=== PATIENT | female | born 1985 | race Caucasian/White ===

== ENCOUNTER 2020-08-26 01:59 | Outpatient (CLI) | payer OTHER, SELFPAY ==
[2020-08-26 17:58] LABS: SARS-CoV-2 RNA PCR Positive
== END 2020-08-26 02:00 | disposition home or self-care (01) ==
LOC: ANHCOVIDDT 01:59
PROVIDERS: PCP Family Medicine; Visit Provider Internal Medicine Gastroenterology
DX: Z01.812 Encounter for preprocedural laboratory examination (principal); U07.1 COVID-19
CPT/HCPCS: 87635; C9803; U0003

== ENCOUNTER 2020-09-12 17:55 | Outpatient (CLI) | payer OTHER, SELFPAY ==
[2020-09-12 18:14] LABS: Basophils Absolute Auto 0.03 K/mm3 (0.00-0.10); Basophils Percent Auto 0.4 % (0.0-1.0); Eosinophils Absolute Auto 0.44 K/mm3 (0.02-0.50); Eosinophils Percent Auto 5.3 % (1.0-6.0); Hematocrit 35.3 % (35.0-49.0); Immature Granulocyte Absolute 0.05 K/mm3 (0.00-0.00); Immature Granulocyte Percent A 0.6 % (0.0-0.0); Lymphocytes Absolute Auto 2.29 K/mm3 (1.10-4.50); Lymphocytes Percent Auto 27.4 % (18.0-42.0); Mean Corpuscular HGB Conc 31.2 g/dL (32.0-36.0); Mean Corpuscular Hemoglobin 24.9 pg (27.0-31.0); Monocytes Absolute Auto 0.37 K/mm3 (0.10-0.90); Monocytes Percent Auto 4.4 % (2.0-11.0); Neutrophils Absolute Auto 5.2 K/mm3 (1.7-7.2); Neutrophils Percent Auto 61.9 % (50.0-70.0); Platelet Count Result 244 K/mm3 (150-420); Red Blood Count 4.41 M/mm3 (4.20-5.40); Red Cell Distribution Width 16.8 % (11.6-14.4); White Blood Count 8.4 K/mm3 (4.8-10.8)
[2020-09-12 19:34] LABS: Anion Gap 13 mmol/L (8-16); Blood Urea Nitrogen 11 mg/dL (7-18); Calcium 9.2 mg/dL (8.5-10.1); Carbon Dioxide 22 mmol/L (21-32); Chloride 102 mmol/L (98-108); Estimated Glomerular Filt Rate > 60; Free T4 Free Thyroxine 0.85 ng/dL (0.76-1.46); Glucose 146 mg/dL (70-99); Osmolality Calculated 286 mOsm/kg (285-295); Potassium 4.3 mmol/L (3.5-5.1); Sodium 137 mmol/L (136-145); Thyroid Stimulating Hormone 2.54 uIU/mL (0.36-3.74)
== END 2020-09-12 17:56 | disposition home or self-care (01) ==
LOC: CHSLAB 17:59
PROVIDERS: PCP Family Medicine; Visit Provider Family Medicine
DX: R00.2 Palpitations (principal)
CPT/HCPCS: 36415; 80048; 84439; 84443; 85025

== ENCOUNTER 2020-09-14 13:59 | Outpatient (CLI) | payer OTHER, SELFPAY ==
--- NOTE | ~2020-09-14 | MR_ITS ---
EXAMINATION: MR knee LT wo con DATE: 09/14/2020 14:49 INDICATION: Medial left knee pain. TECHNIQUE: Magnetic resonance imaging (MRI) of the left knee was performed without intravenous contra st. Sequences included axial PD-weighted FS FSE, coronal PD-weighted FSE and PD-weighted FS FSE, sagi ttal PD-weighted FSE, and sagittal T2-weighted FS FSE. COMPARISON: None. FINDINGS: Medial compartment: Medial meniscus is normal. There is cartilage surface irregularity of femoral condyle and tibial cond yle. Lateral compartment: The lateral meniscus is normal. The lateral compartment cartilage is normal. Patellofemoral compartment: There is cartilage surface irregularity of patellar medial facet. Trochlear cartilage is normal. Ligaments and tendons: The anterior and posterior cruciate ligaments are normal. Medial collateral ligament and lateral hien ateral ligament complex are normal. There is mild patellar tendinopathy. Fluid: There is a small knee joint effusion. There is trace fluid in a Hernandez's cyst. There is mild prepatell ar and superficial infrapatellar bursitis. IMPRESSION: 1. Mild chondrosis of medial and patellofemoral compartments. 2. Small knee joint effusion. Reviewed, dictated and finalized at location A.
== END 2020-09-14 14:00 | disposition home or self-care (01) ==
PROVIDERS: PCP Family Medicine; Visit Provider Family Medicine
DX: M25.461 Effusion, right knee (principal)
CPT/HCPCS: 73721

== ENCOUNTER 2020-09-16 00:39 | Outpatient (CLI) | payer OTHER, SELFPAY ==
[2020-09-16 18:05] LABS: SARS-CoV-2 RNA PCR Positive
== END 2020-09-16 00:40 | disposition home or self-care (01) ==
LOC: ANHCOVIDDT 00:39
PROVIDERS: PCP Family Medicine; Visit Provider Internal Medicine Gastroenterology
DX: Z01.812 Encounter for preprocedural laboratory examination (principal); U07.1 COVID-19
CPT/HCPCS: 87635; C9803; U0003

== ENCOUNTER 2020-10-06 02:41 | Outpatient (CLI) | payer OTHER, SELFPAY ==
[2020-10-06 19:52] LABS: SARS-CoV-2 RNA PCR Negative
== END 2020-10-06 02:42 | disposition home or self-care (01) ==
LOC: ANHCOVIDDT 02:41
PROVIDERS: PCP Family Medicine; Visit Provider Internal Medicine Gastroenterology
DX: Z01.812 Encounter for preprocedural laboratory examination (principal); Z20.828 Contact with and (suspected) exposure to other viral communicable diseases
CPT/HCPCS: 87635; C9803; U0003

== ENCOUNTER 2020-10-06 09:09 | Outpatient (CLI) | payer OTHER, SELFPAY ==
--- NOTE | 2020-10-09 08:55 | WPDHOLTEREM ---
Holter/Event Monitor Holter/Event Monitor Date of procedure: 10/06/20 Procedure Type: 48 hour holter Indications: Palpitations Conclusion: 1. 48 hour holter monitor on 10/06/20. 2. Underlying rhythm is sinus rhythm. HR range 60-156 bpm; average hr 89 bpm. 3. There are 5 premature supraventricular complexes. No supraventricular tachycardia. 4. There are 3 premature ventricular complexes. No ventricular tachycardia. 5. No sinoatrial or atrioventricular blocks. No significant pauses greater than 2 seconds. 6. Patient reports symptoms of fluttering, pounding which demonstrate sinus rhythm, HR range 84-145 bpm with one PAC and one PVC.
== END 2020-10-06 09:10 | disposition home or self-care (01) ==
LOC: CHSCARD 09:11
PROVIDERS: PCP Family Medicine; Visit Provider Family Medicine
DX: R00.2 Palpitations (principal)
CPT/HCPCS: 93225; 93226

== ENCOUNTER 2020-10-09 01:02 | Day surgery (SDC) | payer OTHER, SELFPAY ==
[2020-08-24 09:03] VITALS: BMI 52.0
--- NOTE | 2020-08-28 08:27 | SUR.PREOP ---
0828 Spoke with patient regarding her positive Covid test results. Patient stated she had been contacted by the [facility] yesterday. Explained her procedure was cancelled and to follow up with her primary care doctor for concerns related to her Covid and she could follow up with Dr. Dunn's office to get her procedure rescheduled in 2 weeks or so. We discussed her needing a negative Covid result to be able to have her procedure. Patient voiced understanding and would follow up with Dr. Dunn's office.
--- NOTE | 2020-09-18 13:08 | SUR.PREOP ---
1043 PATIENT CALLED AND GIVEN COVID TEST RESULTS. PATIENT INSTRUCTED TO CALL PRIMARY CARE PHYSICIAN WITH CONCERNS OF COVID SYMPTOMS, PATIENT ALSO INSTRUCTED TO FOLLOW UP WITH DR. BAEZ OFFICE REGARDING RE-SCHEDULING HER PROCEDURE.
[2020-10-02 15:05] VITALS: BMI 52.0
[2020-10-09] MEDS: LACTATED RINGERS 1,000 ML 150 ML IV CONT (09:33)
[2020-10-09 09:35] VITALS: BP 133/87; PULSE 106; RESP 20; TEMP 36.4; O2SAT 100; BMI 54.1
--- NOTE | 2020-10-09 09:37 | WPDANESEPPF ---
Anes - Initial Pre Proc Eval Procedure: Operation Date: 10/09/20 10:30 Proposed Procedures p Esophagogastroduodenoscopy - Andrew Reid MD Date/Time: 10/09/20 09:37 Surgeon: Andrew Reid MD Pre Op Diagnosis: Abdominal Pain Patient Data Age: 35 Gender: F Height: 5 ft 8 in Weight: 155 kg Allergies Allergy/AdvReac Type Severity Reaction Status Date / Time diphtheria,pertussis Allergy Severe Swelling Verified 10/09/20 09:34 (acellular),te [From Adacel(Tdap Adolesn/Adult)(PF)] bupropion [From Wellbutrin] Allergy fast Verified 10/09/20 09:34 heartrate eye drops Allergy Other Uncoded 10/09/20 09:34 Home Medications Medication Instructions Recorded Confirmed Type famotidine 20 mg tablet 20 mg PO BID 08/17/20 08/24/20 History omeprazole 20 mg capsule,delayed 20 mg PO DAILY #30 cap 08/17/20 08/24/20 Rx release Zyrtec 10 mg PO DAILY 08/24/20 08/24/20 History metformin 1,500 mg PO DAILY 08/24/20 08/24/20 History omega 4-thm-wri-fish oil [Fish Oil] 1 cap PO DAILY 08/24/20 08/24/20 History Patient hx anesthesia problems: none Family hx anesthesia problems: none PMFSH Past Medical History Medical History (Updated 08/17/20 @ 09:52 by Andrew Reid MD) Anemia GERD (gastroesophageal reflux disease) Obesity, morbid, BMI 40.0-49.9 Family History Family History Father Malignant neoplasm of prostate Basal cell carcinoma of skin High cholesterol Mother A-fib Social History Social History Smoking status: Never smoker Alcohol intake: never Substance use: never Substance use type: does not use Living arrangements: alone Spiritual care concerns: No Anes - Eval Final PreProcedure Day of Procedure 10/09/20 09:37 Patient weight: super morbidly obese Heart: regular rate and rhythm Lungs: clear to auscultation Airway: Mallampati scale class III Neurological: alert and oriented Last oral intake: >/= 8 hours ASA classification: III Emergent: no Anesthetic plan: proceed Anesthesia type and monitoring: general GIVS and standard monitoring Informed Consent: The patient's anesthetic plan and its attendant risks and benefits were discussed with the patient/family/POA. Questions were solicited and answers provided to the satisfaction of the patient/family/POA.
--- NOTE | 2020-10-09 11:29 | PM.HPGS ---
History of Present Illness History of Present Illness Consent: Risks, benefits, and alternatives have been discussed and questions answered. Patient agrees to proceed with procedure. Chief complaint: Abdominal Pain Narrative: Shefali Mckinney is a 35 year old female with gerd on omeprazole and pepcid Review of Systems Constitutional: Constitutional: Denies headache(s) and Denies weakness Eyes: Eyes: Denies blurry vision ENT: Reports Normal hearing present, Denies headache(s) and Denies neck pain Cardiovascular: Cardiovascular: Denies chest pain and Denies dyspnea Respiratory: Respiratory: Denies dyspnea Gastrointestinal: Gastrointestinal: Reports no additional gastrointestinal complaints Genitourinary: Genitourinary: Denies dysuria Musculoskeletal: Musculoskeletal: Denies neck pain Integumentary/Breasts: Skin/Breast: Denies dry skin Neurologic: Reports Normal hearing present, Denies headache(s) and Denies weakness Psychiatric: Psychiatric: Denies anxiety Endocrine: Endocrine: Denies change in body appearance Hematologic/Lymphatic: Hematologic/Lymphatic: Denies easy bleeding Allergic/Immunologic: Allergic/Immunologic: Denies urticaria PMFSH Past Medical History Medical History (Updated 08/17/20 @ 09:52 by Andrew Reid MD) Anemia GERD (gastroesophageal reflux disease) Obesity, morbid, BMI 40.0-49.9 Family History Family History Father Malignant neoplasm of prostate Basal cell carcinoma of skin High cholesterol Mother A-fib Social History Social History Smoking status: Never smoker Alcohol intake: never Substance use: never Substance use type: does not use Living arrangements: alone Spiritual care concerns: No Meds Home Medications and Allergies Home Medications Medication Instructions Recorded Confirmed Type famotidine 20 mg tablet 20 mg PO BID 08/17/20 08/24/20 History omeprazole 20 mg capsule,delayed 20 mg PO DAILY #30 cap 08/17/20 10/09/20 Rx release Zyrtec 10 mg PO DAILY 08/24/20 08/24/20 History metformin 1,500 mg PO DAILY 08/24/20 08/24/20 History omega 9-pyw-nso-fish oil [Fish Oil] 1 cap PO DAILY 08/24/20 08/24/20 History Allergies Allergy/AdvReac Type Severity Reaction Status Date / Time diphtheria,pertussis Allergy Severe Swelling Verified 10/09/20 09:34 (acellular),te [From Adacel(Tdap Adolesn/Adult)(PF)] bupropion [From Wellbutrin] Allergy fast Verified 10/09/20 09:34 heartrate eye drops Allergy Other Uncoded 10/09/20 09:34 Vital Signs Vital Signs - 24 hr 10/09/20 09:35 Temperature 97.6 F Pulse Rate 106 H Respiratory Rate 20 Blood Pressure 133/87 Pulse Oximetry 100 Exam Const: General: comfortable and no acute distress HENMT: General nose exam: Normal nares present Eyes: General: appearance normal, both eyes and all related structures Neck: Neck: no JVD Resp: Auscultation: clear to auscultation bilaterally Cardio: Rate: regular rate Rhythm: regular rhythm GI: Inspection: non-distended GI Palp: Yes Soft to palpation Skin: General skin exam: normal color Neuro: General: gait normal Speech: normal speech Extrem: General: normal to inspection Psych: Mental Status: mental status grossly normal Assessment and Plan Assessment and plan (1) GERD (gastroesophageal reflux disease): Code(s): K21.9 - Gastro-esophageal reflux disease without esophagitis Status: Acute Assessment and Plan: will proceed with egd (2) Obesity, morbid, BMI 40.0-49.9: Code(s): E66.01 - Morbid (severe) obesity due to excess calories Status: Acute
[2020-10-09] MEDS: BENZOCAINE (*SP) 60 ML SPRAY CAN (HURRICAINE) 1 SPRAY MUCOUS MEM (11:33)
[2020-10-09 11:45] VITALS: BP 100/63; PULSE 88; RESP 14; O2SAT 95
[2020-10-09 11:55] VITALS: BP 112/70; PULSE 90; RESP 23; O2SAT 96
[2020-10-09 12:05] VITALS: BP 125/80; PULSE 83; RESP 23; O2SAT 97
== END 2020-10-09 12:16 | disposition home or self-care (01) ==
PROVIDERS: PCP Family Medicine; Visit Provider Internal Medicine Gastroenterology
PROC: 0DJ08ZZ Inspection of Upper Intestinal Tract, Via Natural or Artificial Opening Endoscopic (ICD-10-PCS; CPT 43235; principal; 2020-10-09 10:30)
DX: K21.9 Gastro-esophageal reflux disease without esophagitis (principal); R10.13 Epigastric pain; K44.9 Diaphragmatic hernia without obstruction or gangrene; K29.50 Unspecified chronic gastritis without bleeding; E66.01 Morbid (severe) obesity due to excess calories; Z68.43 Body mass index [BMI] 50.0-59.9, adult
CPT/HCPCS: 43239; 88305; J2704; J7120

== ENCOUNTER 2022-04-19 11:43 | Emergency (ER) | payer OTHER, SELFPAY ==
[2022-04-19 11:48] VITALS: BP 149/89; PULSE 100; RESP 20; O2SAT 98
--- NOTE | 2022-04-19 12:17 | ED.FEMALEGU ---
HPI - Female Genitourinary General Chief complaint: Vaginal Bleeding Stated complaint: Vaginal Bleeding Time Seen by Provider: 04/19/22 11:54 Source: patient Mode of arrival: ambulatory Limitations: no limitations History of Present Illness HPI Narrative: Patient is a 37-year-old female who presents to the ED with report of vaginal bleeding. Patient has a history of PCOS. She reports she switched from a progesterone only pill to a combination oral control at the end of February. Approximately 20 days ago, she began having bleeding. She states the bleeding was intermittent at first. Over the past 2 weeks, she reports having more consistent bleeding. Over the past 2 days, she reports heavy bleeding. She reports having 2 large blood clots this morning and states she was having to change her super plus tampon or heavy pad every hour. She has an appointment with her [employer] on Friday, however became concerned about the amount of bleeding today and decided to come to the ED. She also reports having intermittent left lower quadrant cramping but denies any upper abdominal pain, nausea, vomiting, fever, chills, rectal bleeding, urinary symptoms. Related Data Home Medications Medication Instructions Recorded Confirmed famotidine 20 mg tablet 20 mg PO BID 08/17/20 08/24/20 Zyrtec 10 mg PO DAILY 08/24/20 08/24/20 omega 7-wqk-dnm-fish oil 1,000 mg 1 cap PO DAILY 08/24/20 08/24/20 (120 mg-180 mg) capsule (Fish Oil) Allergies Allergy/AdvReac Type Severity Reaction Status Date / Time diphtheria,pertussis Allergy Severe Swelling Verified 04/19/22 12:01 (acellular),te [From Adacel(Tdap Adolesn/Adult)(PF)] bupropion [From Wellbutrin] Allergy fast Verified 04/19/22 12:01 heartrate eye drops Allergy Other Uncoded 04/19/22 12:01 Review of Systems Review of Systems: CONSTITUTIONAL: Denies fever, chills. GASTROINTESTINAL: Reports intermittent LLQ cramping. Denies upper abdominal pain, nausea, vomiting, rectal bleeding, or diarrhea. GENITOURINARY: Reports vaginal bleeding with clots. Denies dysuria or hematuria. SKIN: Denies rash or itching. MUSCULOSKELETAL: Denies back pain. All systems reviewed & are unremarkable except as noted in HPI and below PMFSH Past Medical History Medical History (Updated 04/19/22 @ 13:48 by Alondra Mckeon PA-C) Anemia GERD (gastroesophageal reflux disease) Obesity, morbid, BMI 40.0-49.9 Surgical History Surgical History (Updated 04/19/22 @ 18:05 by Alondra Mckeon PA-C) History of esophagogastroduodenoscopy (EGD) Family History Family History Father Malignant neoplasm of prostate Basal cell carcinoma of skin High cholesterol Mother A-fib Social History Social History Alcohol intake: never Substance use: never Substance use type: does not use Spiritual care concerns: No Exam Narrative: GENERAL: Well appearing, morbidly obese, non-toxic, in no acute distress. HEAD: Normocephalic, atraumatic. NECK: Supple. No adenopathy, no masses. RESPIRATORY: Airway patent, respirations nonlabored. Clear to auscultation bilaterally, no rales, rhonchi, wheezing. CARDIOVASCULAR: Regular rate and rhythm without murmurs, rubs, or gallops. Peripheral pulses 2+ and equal bilaterally. ABDOMINAL: Soft, no tenderness to palpation, nondistended, no hepatosplenomegaly. Normoactive BS. PELVIC: Normal external genitalia. No genital lesions. Cervix without acute findings. Dark red blood noted with some small clots present, but no pooling of blood or signs of acute hemorrhage. No CMT. MUSCULOSKELETAL: Moves all extremities. Strength/ROM intact without gross deformities. SKIN: Warm, dry, normal color. No rashes. NEURO: A&O X3. Speech clear. Cranial nerves II-XII grossly intact. Steady gait. No ataxic movements. PSYCHIATRIC: Appropriate mood and affect. Normal interaction. Course
[2022-04-19 12:24] LABS: Basophils Absolute Auto 0.1 K/mm3 (0.0-0.1); Basophils Percent Auto 0.7 % (0.2-1.2); Eosinophils Absolute Auto 0.3 K/mm3 (0-0.3); Eosinophils Percent Auto 2.9 % (0-4.4); Hematocrit 33.1 % (37.0-47.0); Hemoglobin 9.6 g/dL (12.0-15.0); Immature Granulocyte Absolute 0.08 K/mm3 (0.00-0.031); Immature Granulocyte Percent A 0.8 % (0-0.5); Lymphocytes Absolute Auto 2.04 K/mm3 (0.9-3.2); Lymphocytes Percent Auto 19.4 % (18.3-44.2); Mean Corpuscular Hemoglobin 22.7 pg (26-34); Mean Corpuscular Volume 78.4 fl (80-100); Mean Platelet Volume 9.6 fl (7.4-10.4); Monocytes Absolute Auto 0.4 K/mm3 (0.1-0.6); Monocytes Percent Auto 3.6 % (2.6-8.5); Neutrophils Absolute Auto 7.6 K/mm3 (1.3-6.7); Neutrophils Percent Auto 72.6 % (45.5-73.1); Platelet Count Result 283 k/mm3 (150-375); Red Blood Count 4.22 M/mm3 (4.2-5.4); Red Cell Distribution Width 17.1 % (11.5-14.5); White Blood Count 10.5 K/mm3 (4.5-10.0)
[2022-04-19 12:32] LABS: Add Urine Microscopic? YES; Appearance Urine Cloudy (Clear); Bilirubin Urine Negative (Negative); Blood Urine 3+ (Negative); Color Urine Yellow (Yellow); Glucose Urine UA Negative (Negative); Ketones Urine Negative (Negative); Leukocyte Esterase Ur Negative LEU/UL (Negative); Nitrate Urine Negative (Negative); Protein Urine 2+ mg/dL (Negative); Specific Grav Ur >= 1.030 (1.001-1.035); Urobilinogen Urine 0.2 mg/dL (<2.0); pH Urine 5.5 (5.0-9.0)
[2022-04-19 12:33] VITALS: BP 130/73; BP 134/70; BP 140/93; PULSE 112; PULSE 113; PULSE 122
[2022-04-19 12:34] LABS: Mucus Urine Rare /lpf; RBC Urine >75 /hpf (0-2); Squamous Epithelial Cell Urine Few /hpf (Few)
[2022-04-19 12:38] LABS: Albumin Level 4.1 g/dL (3.5-5.1); Alkaline Phosphatase 63 U/L (38-126); Anion Gap 11 mmol/L (8-16); Aspartate Amino Transferase 32 U/L (14-36); Bilirubin,Total 0.2 mg/dL (0.2-1.3); Blood Urea Nitrogen 8 mg/dL (7-17); Calcium 9.1 mg/dL (8.4-10.2); Carbon Dioxide 20 mmol/L (22-30); Chloride 106 mmol/L (98-107); Estimated CRCL calculation 143 ml/min; Estimated Glomerular Filt Rate > 60; Glucose 122 mg/dL (65-110); Potassium 4.1 mmol/L (3.4-5.0); Sodium 137 mmol/L (137-145)
[2022-04-19 12:46] LABS: Alanine Aminotransferase 18 U/L (6-35)
[2022-04-19 12:48] LABS: Platelet Estimate Adequate (Adequate)
[2022-04-19 12:49] LABS: Hypochromasia 1+ (NORMAL); Polychromasia 1+ (NORMAL)
[2022-04-19] MEDS: SODIUM CHLORIDE 0.9% IV 1,000 ML 999 ML IV CONT (13:31)
[2022-04-19 14:33] VITALS: BP 142/82; PULSE 100; RESP 18; O2SAT 100
== END 2022-04-19 14:33 | disposition home or self-care (01) ==
PROVIDERS: Physician Assistant; Emergency Provider Emergency Medicine; PCP Family Medicine
DX: N93.9 Abnormal uterine and vaginal bleeding, unspecified (principal); D64.9 Anemia, unspecified; K21.9 Gastro-esophageal reflux disease without esophagitis
CPT/HCPCS: 36415; 80053; 81001; 81025; 85025; 87077; 87086; 87088; 96360; 99283; J7030

== ENCOUNTER 2022-09-26 10:59 | Outpatient (CLI) | payer OTHER, SELFPAY ==
--- NOTE | ~2022-09-26 | US_ITS ---
US abdomen limited INDICATION: Right upper quadrant pain PROCEDURE: Realtime right upper abdominal ultrasound. COMPARISON: No prior studies for comparison. FINDINGS: The pancreas is normal without focal mass or pancreatic ductal dilation. Liver is enlarged measuring 23 cm. Liver echotexture is increased, consistent with fatty infiltration. There is dominique l directional flow in the portal vein. The gallbladder is normal without stones, gallbladder wall thickening or pericholecystic fluid. Comm on bile duct measures 3 mm. No sonographic Anderson's sign. IMPRESSION: 1: Hepatomegaly with fatty infiltration of the liver. Reviewed, dictated and finalized at location A.
== END 2022-09-26 11:00 | disposition home or self-care (01) ==
PROVIDERS: PCP Family Medicine; Visit Provider Family Medicine
DX: R10.11 Right upper quadrant pain (principal)
CPT/HCPCS: 76705

== ENCOUNTER 2023-03-03 08:59 | Outpatient (CLI) | payer OTHER, SELFPAY ==
[2023-03-03 09:14] LABS: Hematocrit 39.1 % (35.0-49.0); Hemoglobin 12.5 g/dL (12.0-15.0); Mean Corpuscular Hemoglobin 26.5 pg (27.0-31.0); Mean Corpuscular Volume 82.8 fL (78.0-102.0); Mean Platelet Volume 9.6 fl (9.2-11.8); Platelet Count Result 253 K/mm3 (150-420); Red Blood Count 4.72 M/mm3 (4.20-5.40); Red Cell Distribution Width 14.5 % (11.6-14.4); White Blood Count 9.6 K/mm3 (4.8-10.8)
[2023-03-03 10:00] LABS: Alanine Aminotransferase 28 U/L (14-59); Albumin Level 3.5 g/dL (3.4-5.0); Alkaline Phosphatase 74 U/L (46-116); Anion Gap 10 mmol/L (8-16); Aspartate Amino Transferase 18 U/L (15-37); Bilirubin,Total 0.3 mg/dL (0.00-1.00); Blood Urea Nitrogen 10 mg/dL (7-18); Calcium 9.1 mg/dL (8.5-10.1); Carbon Dioxide 28 mmol/L (21-32); Chloride 103 mmol/L (98-108); Estimated Glomerular Filt Rate > 60; Glucose 125 mg/dL (70-99); Osmolality Calculated 292 mOsm/kg (285-295); Potassium 4.5 mmol/L (3.5-5.1); Sodium 141 mmol/L (136-145); Total Protein 7.4 g/dL (6.4-8.2)
[2023-03-03 10:18] LABS: Thyroid Stimulating Hormone Reflex 2.14 u/IU/mL (0.36-3.74)
== END 2023-03-03 09:00 | disposition home or self-care (01) ==
LOC: CHSLAB 09:01
PROVIDERS: PCP Family Medicine; Visit Provider Family Medicine
DX: E11.9 Type 2 diabetes mellitus without complications (principal); Z83.49 Family history of other endocrine, nutritional and metabolic diseases
CPT/HCPCS: 36415; 80053; 84443; 85027

== ENCOUNTER 2024-10-30 18:53 | Emergency (ER) | payer OTHER, SELFPAY ==
[2024-10-30 19:01] VITALS: BP 153/83; PULSE 112; RESP 16; TEMP 36.6; O2SAT 97
--- NOTE | 2024-10-30 19:36 | ED_ITS ---
HPI - Extremity Injury (Lower) General Chief Complaint: Extremity Injury, Lower Stated Complaint: Left Knee Pain Time Seen by Provider: 10/30/24 19:24 Source: patient and RN notes reviewed Mode of arrival: ambulatory Limitations: no limitations History of Present Illness HPI Narrative: Patient presents today complaining of left knee instability, fullness, heaviness, and occasional popping. Discomfort is primarily medial. Denies any known injury or trauma, but discomfort started after walking outside for [employer]. Patient takes Celebrex twice daily for her psoriatic arthritis. Related Data Home Medications Medication Instructions Recorded Confirmed celecoxib 100 mg capsule (Celebrex) 200 mg PO BID 12/16/23 05/05/24 Allergies Allergy/AdvReac Type Severity Reaction Status Date / Time diphtheria,pertussis Allergy Severe Swelling Verified 05/05/24 15:08 (acellular),te [From Adacel(Tdap Adolesn/Adult)(PF)] bupropion [From Wellbutrin] Allergy fast Verified 05/05/24 15:08 heartrate eye drops Allergy Other Uncoded 05/05/24 15:08 lisinopril AdvReac Mild cough Uncoded 05/05/24 15:08 Review of Systems Review of Systems: CONSTITUTIONAL: Denies body aches, fever, chills, or sweats. EYES: Denies visual changes, redness, or discharge. ENT: Denies rhinorrhea, congestion, sore throat, or otalgia. CARDIOVASCULAR: Denies chest pain, palpitations, or edema. RESPIRATORY: Denies cough or dyspnea. GASTROINTESTINAL: Denies abdominal pain, nausea, vomiting, or diarrhea. GENITOURINARY: Denies dysuria or hematuria. SKIN: Denies rash, itching, or wounds. MUSCULOSKELETAL: Denies back pain. + left knee discomfort NEUROLOGIC: Denies headache, numbness, tingling, or weakness. PSYCH: Denies depression or anxiety. [facility] Past Medical History Medical History Anemia BMI 50.0-59.9, adult GERD (gastroesophageal reflux disease) History of PCOS Low back pain Surgical History Surgical History History of esophagogastroduodenoscopy (EGD) Family History Family History Father Malignant neoplasm of prostate Basal cell carcinoma of skin High cholesterol Mother A-fib Social History Social History Smoking status: Never smoker Alcohol intake: never Substance use: never Substance use type: does not use Living arrangements: alone Spiritual care concerns: No Comments At time of signature, I have reviewed and agree with nursing past medical, surgical, social and family history unless otherwise noted. Please see nursing chart for further information. There is no relevant family history pertinent to the presenting complaint Exam Narrative: GENERAL: Well-appearing, well-nourished, and in no acute distress. HEAD: Normocephalic, atraumatic. EYES: EOMI. No redness or drainage. Conjunctivae normal. ENT: Mucous membranes pink and moist. NECK: Normal AROM. CHEST: No respiratory distress. EXTREMITIES: Left knee: Mild tenderness to the medial joint line. No tenderness posteriorly or laterally. No bony tenderness to the patella. No abnormal movement of patella. Mild pain active flexion. Inability to assess edema/effusion due to body habitus. SKIN: Warm, dry, no rash. Capillary refill normal. Normal skin turgor. NEURO: No focal deficits. Alert and oriented x3. Gait steady. PSYCH: Normal affect. No signs of depression or anxiety. Course Course Level of Care: Express Care Visit Vital Signs Vital signs: Vital Signs Temperature 97.9 F 10/30/24 19:01 Pulse Rate 112 H 10/30/24 19:01 Respiratory Rate 16 10/30/24 19:01 Blood Pressure 153/83 H 10/30/24 19:01 Pulse Oximetry 97 10/30/24 19:01 Temperature 97.9 F 10/30/24 19:01 Pulse Rate 112 H 10/30/24 19:01 Respiratory Rate 16 10/30/24 19:01 Blood Pressure 153/83 H 10/30/24 19:01 Pulse Oximetry 97 10/30/24 19:01 Reviewed MDM - Extremity Injury (Lower) MDM Narrative Medical decision making narrative: Patient declines x-ray at this time. She requests Medrol Dosepak as this is what she typically takes for this type of injury as she does also have some hypermobility issues of her joints as well. Prescription sent to pharmacy. Work note given so she can rest the knee. Anticipatory guidance given. Differential Diagnosis Differential diagnosis: Likely other (Knee strain, meniscus injury, ligamentous injury) Critical Care Time Critical Care Time Critical Care Time: No Discharge Plan Discharge Clinical Impression: Acute pain of left knee Patient Disposition: Home, Self-Care Condition: Stable Instructions: Knee Pain (ED) Additional Instructions: Please take the Medrol Dosepak as directed. Elevate and ice the knee. Follow- up with your PCP or orthopedic physician in 7-10 days if symptoms are not improving. Your blood pressure was elevated above 120/80 today at Urgent Care. This puts you above the threshold for follow up. Please schedule a followup visit with your personal physician as soon as possible, for further evaluation and treatment. Even blood pressure exceeding 120/80 may indicate pre-hypertension. Prescriptions: New methylprednisolone [Medrol (Angel)] 4 mg tablets,dose pack See Rx Instructions .ROUTE .COMPLEX Qty: 21 0RF Rx Instructions: orally per package directions No Action losartan 50 mg tablet See Rx Instructions .ROUTE .COMPLEX Qty: 180 2RF Dose Instruction: TAKE 1 TABLET BY MOUTH TWICE DAILY Rx Instructions: TAKE 1 TABLET BY MOUTH TWICE DAILY cetirizine [All Day Allergy (cetirizine)] 10 mg tablet 10 mg PO DAILY Qty: 90 1RF celecoxib [Celebrex] 100 mg capsule 200 mg PO BID Hold Instructions: while on medrol dose pack, resume after omeprazole 20 mg capsule,delayed release(DR/EC) 20 mg PO DAILY Qty: 20 0RF metformin 500 mg tablet extended release 24 hr 1,500 mg PO DAILY 90 Days Qty: 270 2RF montelukast 10 mg tablet 10 mg PO DAILY Qty: 90 2RF Follow-up/Referrals: Eugene Reeves DO [Primary Care Provider] - Stand Alone Forms: Work/School Release IP Time of Disposition: 19:35
== END 2024-10-30 19:38 | disposition home or self-care (01) ==
PROVIDERS: Emergency Provider Nurse Practitioner; PCP Family Medicine
DX: M25.562 Pain in left knee (principal)
CPT/HCPCS: 99213; G0463